=== PATIENT | male | born 1950 | race Caucasian/White ===

== ENCOUNTER 2024-02-29 10:53 | Emergency (ER) | payer MEDICARE ==
[~2024-02-29] VITALS: Ht 160 cm; Wt 75.7 kg
[2024-02-29] MEDS ORDERED: ACETAMINOPHEN 325 MG TAB PO ONE (11:30)
[2024-02-29] MEDS ORDERED: methylPREDNISolone sod succ 125 MG VIAL IM ONE (11:30)
[2024-02-29 11:51] LABS: BASO % 0.3 % (0.0-1.0); EOS % 0.1 % (1.0-4.0); HEMATOCRIT 45.9 % (42.0-52.0); LYMPH # 1.1 10*3/uL (1.3-4.4); LYMPH % 8.1 % (27.0-41.0); MEAN CELL VOLUME 96.6 fl (80.0-94.0); MEAN CORPUSCULAR HGB 31.6 pg (27.0-31.0); MEAN CORPUSCULAR HGB CONC 32.7 g/dl (33.0-37.0); MEAN PLATELET VOLUME 12.2 fl (9.6-12.3); MONO # 1.1 10*3/uL (0.1-1.0); MONO % 8.5 % (3.0-9.0); NEUT # 10.8 10*3/uL (2.3-7.9); NEUT % 82.7 % (47.0-73.0); PLATELET COUNT AUTOMATED 174 10*3/uL (130-400); RED BLOOD COUNT 4.75 10*6/uL (4.50-5.90); RED CELL DISTRI WIDTH 12.6 % (0-14.5); WHITE BLOOD COUNT 13.1 10*3/uL (4.8-10.8)
[2024-02-29 12:18] LABS: BUN 17 mg/dl (9-23); CHLORIDE 102 mmol/L (98-107); POTASSIUM 4.1 mmol/L (3.4-5.1)
[2024-02-29] MEDS ORDERED: PAXLOVID 300-11 EAC3 PO (13:17)
[2024-02-29] MEDS ORDERED: IBUPROFEN 800 MG TAB PO ONE (13:20)
== END 2024-02-29 13:50 | disposition home or self-care (01) ==
LOC: ED 10:53
PROVIDERS: Physician Assistant Medical
DX: U07.1 COVID-19 (principal)

== ENCOUNTER 2024-09-26 19:55 | Emergency (ER) | payer MEDICARE ==
[~2024-09-26] VITALS: Ht 180.3 cm; Wt 83.1 kg
[~2024-09-26 19:55] MED LIST: PAXLOVID 300-11 EAC3 PO
[2024-09-28] MEDS ORDERED: EPINEPHrine Hydrochloride 1 MG/10 ML SYR IV ONE (15:33)
== END 2024-09-27 00:13 ==
LOC: ED 19:55
DX: I46.9 Cardiac arrest, cause unspecified (principal)